=== PATIENT | female | born 1995 | race Asian ===

== ENCOUNTER 2020-09-17 20:09 | Inpatient (IN) ==
[2020-09-17] MEDS ORDERED: ONDANSETRON 4 MG/2 ML VIAL IV PRN (20:39)
[2020-09-17] MEDS ORDERED: LACTATED RINGERS 1,000 ML IV ONE (20:39)
[2020-09-17 21:28] LABS: Basophils % 0.2 % (0.0-0.8); Eosinophils # 0.1 10*3/uL (0.0-0.87); Eosinophils % 0.7 % (0.00-10.9); Hemoglobin 11.5 GM/DL (12.0-16.0); Immature Granulocytes % 1.6 %; Immature Granulocytes Absolute 0.14 #; Lymphocytes # 1.6 10*3/uL (1.4-4.0); Lymphocytes % 18.2 % (21.3-54.2); Mean Corpuscular HGB Conc 31.9 GM/DL (32-36); Mean Corpuscular Volume 82.4 FL (87-102); Mean Platelet Volume 9.4 FL (9.6-12.0); Monocytes % 12.3 % (1.7-12.7); Platelet Count 254 T/CUMM (130-400); Red Blood Count 4.37 MC/CUMM (3.8-5.5); Red Cell Distribution Width 13.3 % (9.3-17.3); White Blood Count 8.8 T/CUMM (4-12)
[2020-09-17 21:47] LABS: Alanine Aminotransferase 15 U/L (13-56); Albumin 2.9 G/DL (3.4-5.0); Alkaline Phosphatase 286 U/L (45-117); Aspartate Amino Transferase 18 U/L (0-37); Bilirubin,Total < 0.39 MG/DL (0.2-1.0); Blood Urea Nitrogen 9 MG/DL (7-18); Calcium 8.8 MG/DL (8.5-10.1); Carbon Dioxide 22 MMOL/L (21-32); Estimated Glom Filtration Rate 134 ML/MIN; Glucose 75 MG/DL (74-106); Potassium 3.7 MMOL/L (3.5-5.1); Sodium 136 MMOL/L (136-145); Total Protein 7.7 G/DL (6.4-8.2)
[2020-09-18] MEDS: LACTATED RINGERS 1,000 ML IV SCH ×2 (08:07→16:13)
[2020-09-18] MEDS: OXYTOCIN/LR 20 UNIT/1,000 ML BAG IV SCH (09:21)
[2020-09-18] MEDS ORDERED: LACTATED RINGERS 1,000 ML IV ONE (13:57)
[2020-09-18] MEDS ORDERED: CITRIC ACID/SODIUM CITRATE 30 ML UDCUP PO ONE (13:57)
[2020-09-18] MEDS ORDERED: ePHEDrine 50 MG/ML VIAL IV PRN (13:57)
[2020-09-18] MEDS ORDERED: FAMOTIDINE 20 MG/2 ML VIAL IV ONE (13:57)
[2020-09-18] MEDS ORDERED: ONDANSETRON 4 MG/2 ML VIAL IV ONE (13:58)
[2020-09-18] MEDS ORDERED: PROMETHAZINE 25 MG/1 ML VIAL IM ONE (13:58)
[2020-09-18] MEDS ORDERED: NALOXONE 0.4 MG/ML VIAL IV PRN (13:58)
[2020-09-18] MEDS ORDERED: hydrOXYzine HCL 25 MG/1 ML VIAL IM PRN (13:58)
[2020-09-18] MEDS ORDERED: diphenhydrAMINE 50 MG/1 ML VIAL IV PRN ×2 (13:58)
[2020-09-18] MEDS: fentaNYL 2 MCG/ROPIV 0.2% EPID 100 ML EPIDURAL SCH (14:46)
[2020-09-18 17:13] LABS: Bilirubin,Urine Negative (Negative); Blood, Urine Small mg/dL (Negative); Glucose,Urine (UA) Negative (Negative); Ketones,Urine 80 mg/dL (Negative); Mucus,Urine Occasional /LPF (Occasional); Nitrite,Urine Negative (Negative); Protein,Urine Negative; RBC,Urine 13 /HPF (0-4); Squamous Epithelial Cell,Urine Occasional /HPF (0-10); Urine Appearance CLEAR (Clear); Urine Color Yellow (Yellow); Urine Urobilinogen < 2.0 EU/DL (0.2-1.0)
[2020-09-18] MEDS ORDERED: ceFAZolin 2,000 MG/50 ML DUPLEX IV ONE ×2 (17:14→17:16)
[2020-09-18] MEDS ORDERED: CARBOPROST TROMETHAMINE 250 MCG/ML AMP IM ONE (17:58)
[2020-09-18] MEDS ORDERED: miSOPROStoL 200 MCG TABLET ONE (17:58)
[2020-09-18] MEDS ORDERED: METHYLERGONOVINE 0.2 MG/1 ML AMP ONE (17:58)
[2020-09-18] MEDS ORDERED: LIDOCAINE MPF 2% /EPI 20 ML VIAL ONE ×2 (18:03)
[2020-09-18] MEDS ORDERED: ONDANSETRON 4 MG/2 ML VIAL ONE ×2 (18:03)
[2020-09-18] MEDS ORDERED: PHENYLEPHRINE 1 MG/10 ML SYRINGE IV ONE (18:18)
[2020-09-18] MEDS ORDERED: ACETAMINOPHEN INJ 1,000 MG/100 ML VIAL IV ONE (18:45)
[2020-09-18] MEDS ORDERED: KETOROLAC 30 MG/1 ML VIAL ONE (18:45)
[2020-09-18] MEDS ORDERED: ACETAMINOPHEN 325 MG TABLET PO PRN (18:48)
[2020-09-18] MEDS ORDERED: RHO(D) IMMUNE GLOBULIN 300 MCG SYRINGE IM ONE (18:48)
[2020-09-18] MEDS ORDERED: OXYTOCIN/LR 20 UNIT/1,000 ML BAG IV ONE (18:48)
[2020-09-18] MEDS ORDERED: ONDANSETRON 4 MG/2 ML VIAL IV PRN (18:48)
[2020-09-18 18:50] LABS: Cord Venous Blood PCO2 39.9 MMHG; Cord Venous Blood PO2 39.8
[2020-09-18 18:54] LABS: Cord Arterial Blood HCO3 22.5 MMOL/L
[2020-09-18] MEDS ORDERED: LACTATED RINGERS 1,000 ML IV SCH (19:00)
[2020-09-18] MEDS: HYDROmorphone 2 MG/1 ML VIAL IV SCH (21:15)
[2020-09-18] MEDS: DOCUSATE SODIUM 100 MG CAPSULE PO SCH (22:44)
[2020-09-19] MEDS: IBUPROFEN 800 MG TABLET PO PRN ×3 (01:45→19:50)
[2020-09-19 05:25] LABS: Basophils % 0.2 % (0.0-0.8); Eosinophils % 0.2 % (0.00-10.9); Hematocrit 28.4 VOL% (35.7-47.0); Immature Granulocytes % 0.6 %; Immature Granulocytes Absolute 0.07 #; Lymphocytes # 1.6 10*3/uL (1.4-4.0); Lymphocytes % 14.5 % (21.3-54.2); Mean Corpuscular Volume 82.8 FL (87-102); Mean Platelet Volume 9.5 FL (9.6-12.0); Monocytes % 10.7 % (1.7-12.7); Neutrophils % 73.8 % (38.7-73.9); Red Cell Distribution Width 13.1 % (9.3-17.3)
[2020-09-19 05:27] LABS: Hemoglobin 9.1 GM/DL (12.0-16.0); Platelet Count 177 T/CUMM (130-400); Red Blood Count 3.43 MC/CUMM (3.8-5.5)
[2020-09-19] MEDS: DOCUSATE SODIUM 100 MG CAPSULE PO SCH ×2 (08:21→20:30)
[2020-09-19] MEDS: MULTIVITAMIN (PRENATAL) TABLET PO SCH (08:21)
[2020-09-19] MEDS: SIMETHICONE CHEW 80 MG TABLET PO PRN (08:21)
[2020-09-19] MEDS: MAGNESIUM HYDROXIDE SUSP 30 ML UDCUP PO PRN ×2 (08:21→20:30)
[2020-09-19] MEDS ORDERED: oxyCODONE/ACETAMINOPHEN 5-325 MG TABLET PO PRN (11:20)
[2020-09-19] MEDS: LACTATED RINGERS 1,000 ML IV SCH ×4 (12:50→12:53)
[2020-09-19] MEDS: HYDROmorphone 2 MG/1 ML VIAL IV SCH ×3 (12:53→12:55)
[2020-09-19] MEDS: fentaNYL 2 MCG/ROPIV 0.2% EPID 100 ML EPIDURAL SCH (12:55)
[2020-09-19] MEDS: OXYTOCIN/LR 20 UNIT/1,000 ML BAG IV SCH (12:56)
[2020-09-19] MEDS: oxyCODONE/ACETAMINOPHEN 5-325 MG TABLET PO PRN ×2 (14:55→20:30)
[2020-09-20] MEDS: oxyCODONE/ACETAMINOPHEN 5-325 MG TABLET PO PRN ×2 (00:01→10:01)
[2020-09-20] MEDS: IBUPROFEN 800 MG TABLET PO PRN ×2 (02:18→10:00)
[2020-09-20] MEDS: SIMETHICONE CHEW 80 MG TABLET PO PRN (09:59)
[2020-09-20] MEDS: MULTIVITAMIN (PRENATAL) TABLET PO SCH (09:59)
[2020-09-20] MEDS: DOCUSATE SODIUM 100 MG CAPSULE PO SCH (10:01)
[2020-09-20] MEDS: MAGNESIUM HYDROXIDE SUSP 30 ML UDCUP PO PRN (10:02)
[2020-09-20 14:37] VITALS: BP 99/54
== END 2020-09-20 13:15 | disposition home or self-care (01) | DRG 540 ==
LOC: N.LDOUT 20:09 → N.LD 20:12 → N.OB 09-18 23:25
PROVIDERS: ADMIT Obstetrics & Gynecology; ATTEND Obstetrics & Gynecology
PROC: LDCSECT (ICD-10-PCS; 2020-09-18 18:05)